=== PATIENT | female | born 2000 | race Two or more races ===

== ENCOUNTER 2021-10-19 18:06 | Inpatient (IN) | payer OTHER, BC ==
[~2021-10-19 18:06] MED LIST: Iopamidol-370 76% 500 ML 1 ML ONE
[2021-10-19] MEDS ORDERED: Boostrix 0.5 ML (Tdap) VIAL ONE (18:15)
[2021-10-19] MEDS ORDERED: Morphine 4 MG/ML VIAL ONE ×2 (18:15→22:12)
[2021-10-19] MEDS ORDERED: CEFAZOLIN 1 GM VIAL ONE (18:15)
[2021-10-19] MEDS ORDERED: Ondansetron PF 4 MG/2 ML Vial ONE (18:15)
[2021-10-19 18:32] LABS: #Basophils 0.1 thou/uL (0.0-0.2); #Eosinphils 0.1 thou/uL (0.0-0.7); #Lymphocytes 1.8 thou/uL (1.20-3.40); #Monocytes 1.5 thou/uL (0.11-0.59); #Neutrophils 16.4 thou/uL (1.40-6.50); %Basophils 0.4 % (0.0-1.0); %Eosinophils 0.4 % (0.0-10.0); %Monocytes 7.5 % (0.0-10.0); %Neutrophils 82.6 % (42.0-75.0); Hemoglobin 11.6 g/dL (12.0-16.0); Mean Corpuscular HGB CONC 32.7 g/dL (32.0-36.0); Mean Corpuscular Hemoglobin 32.7 pg (27.0-31.0); Mean Corpuscular Volume 99.9 fL (78.0-98.0); Mean Platelet Volume 10.8 fL (7.4-10.4); Platelet Count 129 thou/uL (130-400); RBC Distribution Width 11.3 % (11.5-14.5); Red Blood Cell (RBC) Count 3.55 mill/uL (4.20-5.40); White Blood Cell (WBC) Count 19.8 thou/uL (4.8-10.8)
[2021-10-19] MEDS ORDERED: Ketorolac Tromethamine 30 MG/ML VIAL ONE ×2 (18:38→22:12)
[2021-10-19 18:52] LABS: BHCG - Serum Negative (NEGATIVE); Pregs Control Background? CLEAR/WHITE (CLR/WHITE); Pregs Control Bar Appear? YES (CONTROL BAR)
[2021-10-19 18:56] LABS: ALT (SGPT) 56 U/L (8-55); AST (SGOT) 74 U/L (5-34); Albumin 3.8 g/dL (3.5-5.0); Alkaline Phosphatase 56 U/L (40-110); Anion Gap 17 mmol/L (10-20); BUN (Urea Nitrogen) 13 mg/dL (7.0-18.7); Bilirubin, Total 0.8 mg/dL (0.2-1.2); Calc. Creatinine Clearance 0 mL/min (70-130); Calcium 8.9 mg/dL (7.8-10.44); Carbon Dioxide 17 mmol/L (22-29); Chloride 112 mmol/L (98-107); Estimated GFR 75; Globulin 3.3 g/dL (2.4-3.5); Glucose 126 mg/dL (70-105); Potassium 3.4 mmol/L (3.5-5.1); Protein, Total 7.1 g/dL (6.0-8.3); Sodium 143 mmol/L (136-145)
[2021-10-19 18:57] LABS: Acetaminophen Less than 10.0 mcg/mL (10.0-30.0); Alcohol Less than 10 mg/dL (Less than 10); Magnesium 1.5 mg/dL (1.6-2.6); Salicylate Less than 8.0 mg/dL (15.0-30.0)
[2021-10-19] MEDS ORDERED: Promethazine HCl 25 MG/ML VIAL IM PRN (20:38)
[2021-10-19] MEDS ORDERED: Morphine 2 MG/ML VIAL SLOW IVP PRN (20:38)
[2021-10-19] MEDS ORDERED: traMADol HCl 50 MG TAB PO PRN (20:43)
[2021-10-19] MEDS ORDERED: Cyclobenzaprine 10 MG TAB PO PRN (20:43)
[2021-10-19] MEDS ORDERED: Potassium Chloride 20 MEQ in Premix Bag 1 BAG IVPB SCH (21:30)
[2021-10-19] MEDS ORDERED: Magnesium Sulfate In Water 4 GM in Premix Bag 1 BAG IVPB SCH (21:30)
[2021-10-19] MEDS ORDERED: Potassium Chloride 20 MEQ in Sodium Chloride 0.9% 250 ML 250 ML IVPB SCH (22:00)
[2021-10-19 22:36] LABS: Amphetamine Not Detected (NotDetected); Barbiturates Screen Not Detected (NotDetected); Benzodiazepine Screen Not Detected (NotDetected); Cocaine Metabolite Screen Not Detected (NotDetected); Methadone Not Detected (NotDetected); Methamphetamine Not Detected (NotDetected); Opiate Screen Detected (NotDetected); Oxycodone Screen Not Detected (NotDetected); Phencyclidine (PCP) Not Detected (NotDetected); THC/Cannabinoid Screen Not Detected (NotDetected); Tricyclic Screen Not Detected (NotDetected)
[2021-10-19 23:37] LABS: #Basophils 0.1 thou/uL (0.0-0.2); #Lymphocytes 0.4 thou/uL (1.20-3.40); #Monocytes 1.2 thou/uL (0.11-0.59); #Neutrophils 12.3 thou/uL (1.40-6.50); %Basophils 0.5 % (0.0-1.0); %Lymphocytes 2.7 % (21.0-51.0); %Monocytes 8.7 % (0.0-10.0); %Neutrophils 88.1 % (42.0-75.0); Hemoglobin 11.2 g/dL (12.0-16.0); Mean Corpuscular HGB CONC 32.7 g/dL (32.0-36.0); Mean Corpuscular Hemoglobin 32.7 pg (27.0-31.0); Mean Platelet Volume 10.2 fL (7.4-10.4); Platelet Count 97 thou/uL (130-400); RBC Distribution Width 11.5 % (11.5-14.5); Red Blood Cell (RBC) Count 3.41 mill/uL (4.20-5.40)
[2021-10-20] MEDS: traMADol HCl 50 MG TAB PO SCH ×6 (00:21→23:43)
[2021-10-20] MEDS: Sodium Chloride 0.9% 1,000 ML IV SCH ×2 (00:21→09:11)
[2021-10-20] MEDS: Acetaminophen 500 MG TAB PO SCH ×6 (00:21→23:43)
[2021-10-20] MEDS: Famotidine 20 MG TAB PO SCH ×3 (00:22→21:17)
[2021-10-20] MEDS: Senokot S 8.6-50 MG TAB PO SCH ×3 (00:22→21:17)
[2021-10-20] MEDS: Gabapentin 100 MG CAP PO SCH ×4 (00:22→21:17)
[2021-10-20 02:01] VITALS: BMI 21.2
[2021-10-20 06:00] LABS: #Lymphocytes 1.3 thou/uL (1.20-3.40); #Monocytes 1.2 thou/uL (0.11-0.59); #Neutrophils 9.2 thou/uL (1.40-6.50); %Basophils 0.1 % (0.0-1.0); %Eosinophils 0.1 % (0.0-10.0); %Lymphocytes 11.2 % (21.0-51.0); %Neutrophils 78.7 % (42.0-75.0); Hemoglobin 10.2 g/dL (12.0-16.0); Mean Corpuscular HGB CONC 32.8 g/dL (32.0-36.0); Mean Corpuscular Hemoglobin 32.8 pg (27.0-31.0); Mean Corpuscular Volume 99.8 fL (78.0-98.0); Mean Platelet Volume 10.5 fL (7.4-10.4); Platelet Count 92 thou/uL (130-400); RBC Distribution Width 11.3 % (11.5-14.5); White Blood Cell (WBC) Count 11.6 thou/uL (4.8-10.8)
[2021-10-20 06:18] LABS: Anion Gap 11 mmol/L (10-20); BUN (Urea Nitrogen) 10 mg/dL (7.0-18.7); Calc. Creatinine Clearance 120 mL/min (70-130); Calcium 8.4 mg/dL (7.8-10.44); Carbon Dioxide 22 mmol/L (22-29); Chloride 112 mmol/L (98-107); Estimated GFR 114; Glucose 77 mg/dL (70-105); Potassium 4.1 mmol/L (3.5-5.1); Sodium 141 mmol/L (136-145)
[2021-10-20 06:57] LABS: SARS-CoV-2 NAA Rapid Test Not Detected (NotDetected)
[2021-10-20] MEDS: Polyethylene Glycol 3350 17 GM Packet PO SCH (09:10)
[2021-10-21] MEDS: Ondansetron PF 4 MG/2 ML Vial IVP PRN ×2 (04:58→11:06)
[2021-10-21] MEDS: Acetaminophen 500 MG TAB PO SCH ×4 (05:02→23:39)
[2021-10-21] MEDS: traMADol HCl 50 MG TAB PO SCH ×3 (05:02→18:09)
[2021-10-21] MEDS: Gabapentin 100 MG CAP PO SCH ×3 (09:18→20:41)
[2021-10-21] MEDS: Polyethylene Glycol 3350 17 GM Packet PO SCH (09:19)
[2021-10-21] MEDS: Famotidine 20 MG TAB PO SCH ×2 (09:19→20:42)
[2021-10-21] MEDS: Senokot S 8.6-50 MG TAB PO SCH ×2 (09:20→20:42)
[2021-10-21] MEDS: Ibuprofen 200 MG TAB PO SCH ×2 (11:03→18:08)
[2021-10-22] MEDS: Ibuprofen 200 MG TAB PO SCH ×4 (00:36→18:26)
[2021-10-22] MEDS: traMADol HCl 50 MG TAB PO SCH ×5 (00:36→18:27)
[2021-10-22] MEDS ORDERED: Loratadine 10 MG TAB PO PRN (06:11)
[2021-10-22] MEDS: Acetaminophen 500 MG TAB PO SCH ×3 (06:16→18:26)
[2021-10-22] MEDS: Gabapentin 100 MG CAP PO SCH ×3 (09:47→21:02)
[2021-10-22] MEDS: Famotidine 20 MG TAB PO SCH ×2 (09:47→21:02)
[2021-10-22] MEDS: Senokot S 8.6-50 MG TAB PO SCH ×3 (11:33→21:20)
[2021-10-22] MEDS: Polyethylene Glycol 3350 17 GM Packet PO SCH (11:33)
[2021-10-22] MEDS ORDERED: Enoxaparin Sodium 40 MG/0.4 ML SYRINGE SC SCH (21:00)
[2021-10-23] MEDS: traMADol HCl 50 MG TAB PO SCH ×4 (00:24→18:03)
[2021-10-23] MEDS: Ibuprofen 200 MG TAB PO SCH ×4 (00:24→18:04)
[2021-10-23] MEDS: Acetaminophen 500 MG TAB PO SCH ×4 (00:24→18:03)
[2021-10-23 06:05] LABS: #Eosinphils 0.3 thou/uL (0.0-0.7); #Lymphocytes 1.5 thou/uL (1.20-3.40); #Monocytes 0.6 thou/uL (0.11-0.59); #Neutrophils 4.5 thou/uL (1.40-6.50); %Basophils 0.4 % (0.0-1.0); %Eosinophils 4.9 % (0.0-10.0); %Lymphocytes 21.3 % (21.0-51.0); %Neutrophils 64.4 % (42.0-75.0); Hemoglobin 10.5 g/dL (12.0-16.0); Mean Corpuscular Hemoglobin 31.9 pg (27.0-31.0); Mean Corpuscular Volume 99.8 fL (78.0-98.0); Mean Platelet Volume 9.9 fL (7.4-10.4); Platelet Count 106 thou/uL (130-400); RBC Distribution Width 11.3 % (11.5-14.5); Red Blood Cell (RBC) Count 3.29 mill/uL (4.20-5.40)
[2021-10-23 06:26] LABS: Anion Gap 15 mmol/L (10-20); BUN (Urea Nitrogen) 14 mg/dL (7.0-18.7); Calc. Creatinine Clearance 126 mL/min (70-130); Calcium 9.1 mg/dL (7.8-10.44); Carbon Dioxide 24 mmol/L (22-29); Chloride 104 mmol/L (98-107); Estimated GFR 121; Glucose 87 mg/dL (70-105); Magnesium 1.5 mg/dL (1.6-2.6); Phosphorus 3.5 mg/dL (2.3-4.7); Sodium 139 mmol/L (136-145)
[2021-10-23] MEDS ORDERED: Magnesium Oxide 400 MG TAB PO SCH (09:00)
[2021-10-23] MEDS: Gabapentin 100 MG CAP PO SCH ×2 (09:33→16:18)
[2021-10-23] MEDS: Famotidine 20 MG TAB PO SCH (09:34)
[2021-10-23] MEDS: Magnesium 2 GM/50 ML(in water) 2 GM in Premix Bag 1 BAG IVPB SCH ×2 (09:35→11:22)
[2021-10-23] MEDS: Polyethylene Glycol 3350 17 GM Packet PO SCH (10:19)
[2021-10-23] MEDS: Senokot S 8.6-50 MG TAB PO SCH (10:20)
[2021-10-23 17:10] VITALS: BP 103/68; TEMP 98.8
== END 2021-10-23 18:20 | DRG 964 ==
LOC: ERS 18:06 → SURG A 20:43
PROVIDERS: ADMIT Surgery; ATTEND Surgery
DX: S32.82XA Multiple fractures of pelvis without disruption of pelvic ring, initial encounter for closed fracture (principal); S27.331A Laceration of lung, unilateral, initial encounter; S06.0X9A Concussion with loss of consciousness of unspecified duration, initial encounter; S22.32XA Fracture of one rib, left side, initial encounter for closed fracture; S27.0XXA Traumatic pneumothorax, initial encounter; S41.012A Laceration without foreign body of left shoulder, initial encounter; Z20.822 Contact with and (suspected) exposure to COVID-19; E83.42 Hypomagnesemia; E87.5 Hyperkalemia; Z79.82 Long term (current) use of aspirin; Y92.411 Interstate highway as the place of occurrence of the external cause; V43.62XA Car passenger injured in collision with other type car in traffic accident, initial encounter
CPT/HCPCS: 36415; 70450; 70486; 71045; 71260; 72125; 72170; 74177; 80048; 80053; 80306; 80307; 83735; 84100; 84703; 85025; 86850; 86900; 86901; 90471; 90715; 93005; 96374; 96375; 96376; G0390; J0690; J1650; J1885; J2270; J2405; J3475; J3480; J7050; Q9967; U0002